=== PATIENT | male | born 1955 | race Caucasian/White ===

== ENCOUNTER 2017-06-07 17:12 | Inpatient (IN) ==
[2017-06-07] MEDS ORDERED: ASPIRIN PO STA (17:31)
[2017-06-07 17:59] LABS: MANUAL DIFF NEEDED? NO
[2017-06-07 18:03] LABS: BASO% 0.6 % (0.0-0.8); EOS% 3.2 % (0.0-10.0); HEMATOCRIT 42.7 % (42.0-52.0); HEMOGLOBIN 14.4 g/dL (14.0-18.0); IMM GRAN# 0.02 X1000 (0.0-0.04); IMM GRAN% 0.3 % (0.0-0.5); LYMPH# 1.88 X1000 (1.2-3.4); LYMPH% 30.1 % (20.5-51.1); MCH 33.8 PG (27-31); MCHC 33.7 g/dL (33-37); MCV 100.2 FL (81-99); MONO# 0.53 X1000 (0.11-0.59); MONO% 8.5 % (1.7-9.3); MPV 10.5 FL (7.4-10.4); NEUT% 57.3 % (42.2-75.2); PLT 223 X1000 (130-400); RBC 4.26 XMIL (4.7-6.1)
[2017-06-07 18:19] LABS: INR 1.13; PTT 31.8 Seconds (22.0-36.0)
[2017-06-07 18:27] LABS: AGAP 9; ALBUMIN 4.2 g/dL (3.5-5.0); ALKALINE PHOSPHATASE 63 U/L (32-122); BUN 12 mg/dL (8-22); CALCIUM 9.2 mg/dL (8.8-10.2); CHLORIDE 101 mmol/L (98-107); CK PROFILE 66 U/L (24-204); COSMO 275; GOT 15 U/L (10-34); GPT 9 U/L (10-44); MAGNESIUM 2.1 mg/dL (1.5-2.7); POTASSIUM 4.7 mmol/L (3.5-5.1); SODIUM 138 mmol/L (136-145); TCO2 28 mmol/L (25-35); TOTAL BILIRUBIN 0.44 mg/dL (0.20-1.00); TOTAL PROTEIN 6.8 g/dL (6.3-8.3)
--- NOTE | 2017-06-07 18:33 | Diag Imaging Result Doc PS360 ---
EXAM: CHEST-PORTABLE INDICATION: CP TECHNIQUE: One view COMPARISON: 08/30/2016 FINDINGS: The lungs are grossly clear. There is no discrete pleural fluid collection or pneumothorax. The cardiomediastinal silhouette and central vasculature are grossly unremarkable. IMPRESSION: No evidence of acute pathology by plain radiograph. Electronically signed by Vladimir Arauz 06/07/2017 6:31 PM
--- NOTE | 2017-06-07 18:45 | Diag Imaging Result Doc PS360 ---
EXAM: CT HEAD W/O CONTRAST TECHNIQUE: Dose reduction protocol was used. INDICATION: right sided numbness/weakness COMPARISON: None. FINDINGS: There is no definite acute infarct given the limited sensitivity of CT versus MRI. There is no discrete intracranial mass, mass effect, or intracranial hemorrhage. There is opacification of the right frontal sinus. The surrounding soft tissues and bony structures are essentially unremarkable, otherwise. IMPRESSION: 1.No evidence of acute intracranial pathology. 2.Right frontal sinus mucosal disease. Electronically signed by Vladimir Arauz 06/07/2017 6:43 PM
--- NOTE | 2017-06-07 19:10 | PROVIDER DOCUMENTATION ---
This chart was entered by Marta Centeno Scribe, acting as scribe for Adiel Ugalde MD. HPI-Neurological Disorder - General Chief Complaint: Chest Pain Stated Complaint: RT ARM/LEG NUMBNESS/CP Time Seen by Provider: 06/07/17 18:00 Source: patient Allergies/Adverse Reactions: Patient Allergies Allergy/AdvReac Type Severity Reaction Status Date / Time acyclovir [From Zovirax] Allergy RASH Verified 06/07/17 18:34 acyclovir sodium * Allergy RASH Verified 06/07/17 18:34 [From Zovirax] Home Medications: Home Medication List Medication Instructions Recorded Confirmed Last Taken Type Warfarin Sodium [Coumadin] 7.5 mg PO DAILY 02/13/14 06/07/17 08/30/16 07:00 History Alprazolam [Xanax] 0.5 mg PO DAILY 06/07/17 06/07/17 Unknown History - History of Present Illness-Neuro Nature of Presenting Problem: 61 Y/O M presents to ED with Stroke-like Symptoms. Pt states this morning he woke up feeling normal walked to the Kitchen and and felt lightheaded and then had a syncopal episode. Pt states he comes to walks to living room and feels the same symptoms and lets himself to the ground and then had another syncopal episode. Pt states that after this episode he began having right side leg and arm numbness. Began around 10:30am Severity: reports: severe Onset/Duration: reports: this morning Timing: reports: still present Context: reports: other (syncopal) Approximate time patient was last seen normal?: 10:15 Character of Deficits: reports: new weakness, altered sensation New weakness or altered sensation location:: reports: RUE, RLE Cognitive Baseline: alert, oriented x3 Associated Symptoms: reports: numbness in legs/feet, weakness. denies: dizziness, chest pain, fatigue, fever/chills, insomnia, nausea, ringing in ears , seizures, slurred speech, trouble walking Similar Symptoms Previously?: No Recently seen or treated by another doctor?: No Review of Systems - Adult - REVIEW OF SYSTEMS - ADULT Constitutional: denies: chills, fever Eyes: reports: no symptoms reported Ears, Nose, Mouth & Throat: reports: no symptoms reported Cardiovascular: denies: chest pain Respiratory: reports: no symptoms reported Gastrointestinal: reports: no symptoms reported Genitourinary: reports: no symptoms reported Musculoskeletal: reports: no symptoms reported Integumentary: reports: no symptoms reported Neurological: reports: dizziness/vertigo, numbness, syncope. denies: seizure Psychiatric: reports: no symptoms reported Endocrine: reports: no symptoms reported Hematologic/Lymphatic: reports: no symptoms reported Allergic/Immunologic: reports: no symptoms reported All Other Systems: Reviewed and Negative Past History - Adult - PAST MEDICAL HISTORY-ADULT Review of Records: reports: Old Records Reviewed, Nursing Assessment Review, Medications Reviewed, Social history reviewed & non-contributory. Major Childhood Illnesses: reports: denies history Cardiovascular: reports: denies history Respiratory: reports: COPD, other (PE) - PRIOR SURGERIES/PROCEDURES Surgical/Procedure History: reports: orthopedic (extremity) - IMMUNIZATION STATUS Childhood Immunizations: See Nurse Assessment Flu Vaccine: See Nurse Assessment - SOCIAL HISTORY Smoking: cigarettes, greater than 1 pack/day Physical Exam- Neurological - Physical Exam-Neuro General Appearance: alert, mild distress Eye Exam: bilateral eye: normal inspection, PERRL, EOMI HENMT: normal ENT inspection, TMs normal, pharynx normal Head Injury: no evidence of injury Neck: full range of motion, supple Respiratory: lungs clear, normal breath sounds Cardiovascular: regular rate, rhythm, no edema, no gallop, no JVD Abdominal Exam: non tender, soft 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 negative: abnormal eye position, abnormal gag reflex, abnormal pupil position, abnormal speech, facial droop, facial paresthesias, facial weakness Coordination/Gait: ABN nose to finger (R) Motor/Sensory: negative Babinski's sign, pronator drift (R), sensory deficit, weak motor strength RUE, weak motor strength RLE Neurologic: grossly normal, sensory deficit Integumentary: normal turgor Psych/Mental Status: normal mood/affect, normal thought content, normal thought process, oriented x 3 - Glascow Coma Scale Best Eye Response: (4) open spontaneously Best Verbal Response: (5) oriented Best Motor Response: (6) obeys commands Total Glascow Score: 15 Progress - PLAN OF CARE/RESULTS Progress/Plan/Lab Results: Vital Signs - 8 hr 06/07/17 17:26 06/07/17 19:05 Temperature 98.0 F Pulse Rate 87 72 Respiratory Rate 20 18 Blood Pressure 125/85 129/97 O2 Sat by Pulse Oximetry 100 98 Laboratory Results - last 24 hr 06/07/17 06/07/17 06/07/17 17:34 17:34 17:34 WBC 6.24 RBC 4.26 L Hgb 14.4 Hct 42.7 MCV 100.2 H MCH 33.8 H MCHC 33.7 RDW Std Deviation 13.8 Plt Count 223 MPV 10.5 H Immature Gran % (Auto) 0.3 Neut % (Auto) 57.3 Lymph % (Auto) 30.1 Screven % (Auto) 8.5 Eos % (Auto) 3.2 Baso % (Auto) 0.6 Immature Gran # (Auto) 0.02 Neut # (Auto) 3.57 Lymph # (Auto) 1.88 Screven # (Auto) 0.53 Eos # (Auto) 0.20 Baso # (Auto) 0.04 PT INR PTT (Actin FS) D-Dimer 0.32 Sodium 138 Potassium 4.7 Chloride 101 Carbon Dioxide 28 Anion Gap 9 BUN 12 Creatinine 1.0 Estimated GFR/1.73 m2 > 60 BUN/Creatinine Ratio 12 Glucose 91 Calculated Osmolality 275 Calcium 9.2 Magnesium 2.1 Total Bilirubin 0.44 AST 15 ALT 9 L Alkaline Phosphatase 63 Creatine Kinase 66 Troponin T Nsb-T-Pnrafwfkasm Pept Total Protein 6.8 Albumin 4.2 Globulin 2.6 Albumin/Globulin Ratio 1.6 06/07/17 06/07/17 06/07/17 17:34 17:34 17:34 WBC RBC Hgb Hct MCV MCH MCHC RDW Std Deviation Plt Count MPV Immature Gran % (Auto) Neut % (Auto) Lymph % (Auto) Screven % (Auto) Eos % (Auto) Baso % (Auto) Immature Gran # (Auto) Neut # (Auto) Lymph # (Auto) Screven # (Auto) Eos # (Auto) Baso # (Auto) PT 12.0 H INR 1.13 PTT (Actin FS) 31.8 D-Dimer Sodium Potassium Chloride Carbon Dioxide Anion Gap BUN Creatinine Estimated GFR/1.73 m2 BUN/Creatinine Ratio Glucose Calculated Osmolality Calcium Magnesium Total Bilirubin AST ALT Alkaline Phosphatase Creatine Kinase Troponin T < 0.010 Htb-V-Ykmxixbduau Pept 121 Total Protein Albumin Globulin Albumin/Globulin Ratio Orders Category Date Time Status Cardiac Monitoring DIRECTED Care 06/07/17 17:31 Active Saline Loc NOW Care 06/07/17 17:31 Active CHEST-PORTABLE [RAD] Stat Exams 06/07/17 17:[address] HEAD W/O CONTRAST [CT] Stat Exams 06/07/17 18:21 Completed CBC WITH ELECTRONIC DIFF [HEME] Stat Lab 06/07/17 17:34 Completed CK PROFILE [SP CHEM] Stat Lab 06/07/17 17:34 Completed COMPREHENSIVE METABOLIC PANEL [CHEM] Stat Lab 06/07/17 17:34 Completed D-DIMER [CHEM] Stat Lab 06/07/17 17:34 Completed MAGNESIUM [CHEM] Stat Lab 06/07/17 17:34 Completed PRO B-NATRIURETIC PEPTIDE Stat Lab 06/07/17 17:34 Completed PROTIME WITH INR [COAG] Stat Lab 06/07/17 17:34 Completed PTT [COAG] Stat Lab 06/07/17 17:34 Completed TROPONIN T Stat Lab 06/07/17 17:34 Completed Aspirin Med 06/07/17 17:31 Discontinued 325 mg PO STAT STA EKG [EKG] Stat Ther 06/07/17 17:25 Ordered EKG [EKG] Stat Ther 06/07/17 17:31 Ordered Result Diagrams: 06/07/17 17:34 06/07/17 17:34 - EKG 1 Time of EKG reading by physician:: 17:28 EKG Read and Signed by:: Adiel Ugalde EKG Interpretation (*Must complete 3 of following elements*): Normal Rate: 83 Rhythm: NSR Comments: Normal ECG - CT/MRI 1 CT Study: Head Impression: Normal CT Results: NAD Departure - Departure Date of Disposition Decision: 06/07/17 Time of Disposition Decision: 19:09 DIAGNOSIS: CVA (cerebral vascular accident) Qualifiers: CVA mechanism: unspecified Qualified Code(s): I63.9 - Cerebral infarction, unspecified Disposition: ADMITTED INPATIENT 09 Certified Medical Emergency: Emergent Condition: Fair - Critical Care Note This patient required my direct & personal management of CC.: No Attestation - Physician/ BEREKET Attestation Patient care was provided by Advanced Practice Provider:: No The physician spent face to face time with patient:: Yes Advanced Practice Provider documentation review:: Supervising physician onsite and consulted in the evaluation and care of this patient. The physician did have a face to face encounter with the patient. This chart was documented by the indicated scribe, (Marta Centeno Scribe) and accurately reflects the services I performed and decisions made by me, Adiel Ugalde MD, as attested by the provider's signature.
[2017-06-07] MEDS ORDERED: ZOFRAN IV PRN (21:44)
--- NOTE | 2017-06-07 22:42 | HISTORY AND PHYSICAL ---
PRIMARY CARE PHYSICIAN: None. CHIEF COMPLAINT: Right-sided weakness x1 day. HISTORY OF PRESENTING ILLNESS: A 61-year-old male with a history of hepatitis C , chronic neck pain, factor V Leiden deficiency how who had presented to the emergency department with 1-day history of having right-sided weakness. Patient states that there was no speech disturbance, but only mostly that his right upper extremity and lower extremity were weak. He was evaluated in the ER. Stroke workup was started and due to his presenting symptoms, he would need admission for further management. At the time of my examination, he had denied any fevers, chills, nausea, vomiting, diarrhea, chest pain, hemoptysis, melena, or weight changes. Just really complained of right-sided weakness. PAST MEDICAL HISTORY: Chronic neck pain, hepatitis C, factor V Leiden deficiency. PAST SURGICAL HISTORY: Bilateral feet surgery. Left knee surgery. Right hip surgery. Left shoulder surgery. ALLERGIES: Acyclovir. CURRENT MEDICATIONS: As listed in medication reconciliation sheet. SOCIAL HISTORY: 40+ pack years history of smoking. No history of alcohol use. Admits to marijuana use. FAMILY HISTORY: No history of coronary disease. REVIEW OF SYSTEMS: Twelve point review of systems is as listed in HPI. Other systems negative. PHYSICAL EXAMINATION: GENERAL: Cooperative, friendly male. He is resting comfortably now. VITAL SIGNS: Temperature 98.1 degrees, pulse 77, respirations 18, blood pressure 129/97. HEENT: Atraumatic, normocephalic. Extraocular movements intact. PERRLA. NECK: Supple. CHEST: Clear to auscultation. CARDIOVASCULAR: Regular rate and rhythm. ABDOMEN: Soft. Positive bowel sounds. EXTREMITIES: No edema. NEUROLOGIC: He is awake, alert, oriented x3. Strength 4-5 right upper and lower extremities. Speech is intact. : No bladder distention. SKIN: Warm. LABORATORIES AND STUDIES: CT of the head, no evidence of any acute intracranial pathology. Laboratory: WBC 6.24, hemoglobin 14.4, hematocrit 42.7, platelets 223,000. Sodium 138, potassium 4.7, chloride 101, CO2 28, BUN is 12, creatinine is 1, glucose 91. ASSESSMENT: A 61-year-old male with a history of chronic neck pain, hepatitis C , factor V Leiden who had presented to emergency department with complaint of right-sided weakness. He was evaluated in the ER and it was suspected he had a stroke and subsequently he will need hospitalization for further management. 1. Right-sided weakness. Suspected cerebrovascular accident. 2. Factor V Leiden deficiency PLAN: 1. We will admit patient to medical floor with telemetry. 2. We will continue with stroke workup. Schedule patient for MRI of the brain with and without. 3. Check an echocardiogram. 4. We will continue his anticoagulation for now. 5. Neurology will be consulted. 6. We will continue with DVT prophylaxis with SCD also. 7. We will continue to follow and reassess. cc: Isaiah Calixto MD MTDD
[2017-06-07] MEDS ORDERED: TYLENOL PO PRN (22:51)
[2017-06-07 22:59] LABS: INR 1.2; PROTIME 12.7 Seconds (9.2-11.7)
[2017-06-07] MEDS: MORPHINE IV PRN (23:13)
[2017-06-08] MEDS: MORPHINE IV PRN ×4 (04:05→21:55)
--- NOTE | 2017-06-08 05:36 | EKG Report ---
Test Performed on : 06/07/2017 5:28:11 PM Test Reason : CP Blood Pressure : / mmHG Vent. Rate : 083 BPM Atrial Rate : 083 BPM P-R Int : 140 ms QRS Dur : 070 ms QT Int : 380 ms P-R-T Axes : 054 028 037 degrees QTc Int : 446 ms Normal sinus rhythm. Normal ECG When compared with ECG of 30-AUG-2016 13:31, No significant change was found Unconfirmed Result
[2017-06-08 06:47] LABS: MANUAL DIFF NEEDED? NO
[2017-06-08 06:58] LABS: BASO% 0.5 % (0.0-0.8); EOS# 0.17 X1000 (0.0-0.7); EOS% 2.7 % (0.0-10.0); HEMATOCRIT 42.4 % (42.0-52.0); HEMOGLOBIN 14.2 g/dL (14.0-18.0); LYMPH# 1.63 X1000 (1.2-3.4); LYMPH% 25.5 % (20.5-51.1); MCH 34.1 PG (27-31); MCHC 33.5 g/dL (33-37); MCV 101.9 FL (81-99); MONO# 0.59 X1000 (0.11-0.59); MONO% 9.2 % (1.7-9.3); MPV 10.6 FL (7.4-10.4); NEUT% 62.1 % (42.2-75.2); PLT 178 X1000 (130-400); RBC 4.16 XMIL (4.7-6.1)
[2017-06-08 07:26] LABS: AGAP 12; ALBUMIN 3.6 g/dL (3.5-5.0); ALKALINE PHOSPHATASE 58 U/L (32-122); BUN 14 mg/dL (8-22); CALCIUM 8.8 mg/dL (8.8-10.2); CHLORIDE 103 mmol/L (98-107); COSMO 277; GOT 14 U/L (10-34); GPT 9 U/L (10-44); POTASSIUM 4.6 mmol/L (3.5-5.1); SODIUM 139 mmol/L (136-145); TCO2 24 mmol/L (25-35); TOTAL BILIRUBIN 0.36 mg/dL (0.20-1.00); TOTAL PROTEIN 6.2 g/dL (6.3-8.3)
--- NOTE | 2017-06-08 09:42 | Diag Imaging Result Doc PS360 ---
MRI BRAIN W W/O CONTRAST - 06/07/2017 INDICATION: cva COMPARISON: Head CT 06/07/2017 FINDINGS: There is no area of restricted diffusion. The ventricles and sulci are normal in size and contour. No intracranial mass or hemorrhage. No abnormal contrast enhancement. There are a few minimal tiny scattered areas of cerebral white matter hyperintensity mostly in the subcortical areas. There is also right frontal sinusitis. IMPRESSION: 1. No acute intracranial abnormality. 2. Right frontal sinusitis. Electronically signed by Shine Begum 06/08/2017 9:39 AM
[2017-06-08] MEDS: XANAX PO SCH (09:46)
[2017-06-08] MEDS: COUMADIN PO SCH (09:46)
--- NOTE | 2017-06-08 13:14 | PROGRESS NOTE ---
DATE: 06/08/2017 Today Mr. Ortiz referred to be doing relatively fine. Still has a little numbness in the right leg and right hand. According to Mr. Ortiz he just blacked out yesterday about 2 times at home where during the episode he did not remember anything but then recovered consciousness spontaneously. He came in and patient was admitted for concern of possible stroke. Very interestingly in his history he states he normally checks his blood pressure on a daily basis and it is usually in the mid 120s over mid 70s to lower 80s. However when the episode happened yesterday his blood pressure was in the 110s and his pulse was in the 60s. Numbers that were extremely rare for him because his pulse normally runs above 100 all the time. OBJECTIVE: Vital signs: Blood pressure is 129/97, pulse of 77, respirations 18 , temperature is 98.1 degrees. General: Mr. Ortiz 61-year-old male. He is in bed, not in any distress. HEENT: Mucosa is pink and moist. Anicteric. Acyanotic. Neck: Supple. Chest : Good air entry bilaterally. No crepitations. No rhonchi. Cardiovascular: Regular rate and rhythm. Did not hear any murmurs. Abdomen: Soft, nontender. Extremities: No pedal edema. 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 Did not appreciate any weakness or any deficits. LABORATORY DATA: Has been reviewed. CBC is unremarkable except for a macrocytosis. Chemistry is also reviewed which is unremarkable. Troponins have been trended 3 times and they are all negative. The patient's lipid panel is also unremarkable. An MRI of the brain was done early this morning which is unremarkable. There is no acute intracranial abnormality. ASSESSMENT: 1. Syncope with extremely low blood pressure and low pulse (both vasodepressor and cardioinhibitory). I think this is mainly neurally mediated however we cannot rule out possibility of an underlying cardiac. We would therefore consult Cardiology to evaluate the patient to see if patient will benefit from any event recorder or some form of cardiac monitoring on outpatient basis. 2. History of factor V deficiency. Patient is on chronic Coumadin therapy. 3. Macrocytosis. We will do B12 and folate levels. 4. Chronic anticoagulation with Coumadin. Currently INR is 1.27. We will continue with his Coumadin therapy. 5. Questionable TIA. MRI negative So, in general, I think Mr. Ortiz suffered from syncope. So far, the MRI report is unremarkable which was done because they were trying to rule out stroke. Will be waiting on the echo which has been done and also the carotid ultrasound is pending. I will order a Cardiology consult for evaluation for possible cardiac monitoring device. cc: Kp Pope MD MTDD
--- NOTE | 2017-06-08 14:22 | CONSULTATION ---
DATE OF CONSULTATION: 06/08/2017 Mr. Ortiz reports having a collapse at home and then noticing right-sided weakness. His history to me now is that he was seated and felt very thirsty. He got up and walked to the kitchen to get some water. He felt "funny feeling" in the head and then he dropped to the floor. He believes that he was unconscious for a few minutes. He was able to pull himself up onto a chair, got some water to drink, walked back toward the other room, and then had similar feeling in the head and this time he eased himself to the floor. He believes that he was unconscious again for several minutes. He recovered. He remembers telephone ringing and he spoke with his on the phone. He remembers feeling weak all over, but more weak on the right side. His vision was difficult globally but he did not notice blindness, diplopia, focal loss of visual field. He believes he is not quite completely recovered today. There was no evidence of serious injury. There was no incontinence. There was not definite tongue biting or bleeding. He reports no previous similar symptoms, no previous collapse, no previous diagnosed seizure, stroke, or other neurologic event. PAST HISTORY: His past history is remarkable for hepatitis C, chronic neck pain , factor V Leiden deficiency. SOCIAL HISTORY: He smokes cigarettes. WORKUP: Work-up here includes noncontrast CT of the head, reported unremarkable. We do not have urine drug screen. HOME MEDICINES: 1. Alprazolam. 2. Report from his primary clinic several months ago includes medicine list then with oxycodone and tramadol. PHYSICAL EXAMINATION: Vital Signs: Systolic blood pressures have ranged 110s to 130s. General Appearance: Now, Mr. Ortiz is awake, alert, attentive. He seems appropriate. Speech is not dysarthric. Language function is intact on bedside testing. Memory seems good. Head and neck: Unremarkable. Neurological Examination: Visual dominguez are full, tested by confrontational finger counting. Extraocular movements are full. Facial motility appears normal and symmetric. Gag is intact. Tongue is midline. He can hear. Shoulder shrug is good bilaterally. Strength is normal in the left limbs. 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 On repeated testing, I was not able to determine definite motor deficit in the right limbs. Tone is equal in the limbs. He did well on [id number] testing bilaterally. His responses to sensory testing by light touch and pinprick are too variable to be considered valid. Proprioception is good at the great toe bilaterally. Gait tested very briefly is unremarkable. He did well on qpdqor-sq-fovi testing. Reflexes are 2+ at knees and trace at the ankles with poor relaxation, but all symmetric. IMPRESSION: 1. Recent collapse, uncertain explanation. There might be some postural lightheadedness or postural hypotension. The history does not sound like a definite seizure. His history to me suggests that he had almost immediate recovery of memory as he regained consciousness after each episode. Seizure is not impossible and, if he did have seizure, I wonder about benzodiazepine withdrawal. His history does not sound like he was having symptoms of benzodiazepine withdrawal prior to these episodes of collapse, however. I do not see anything in the metabolic profile that likely would be associated with seizure or encephalopathy. I encouraged him to stay well hydrated, to stand slowly, to sit quickly if he is lightheaded or funny headed feeling. I do not have any other suggestion from neurologic standpoint. 2. I believe that he has had a good bit of trouble with headache. He reports headache was present when this episode occurred and he still has some headache today, but I think that is baseline. Negative imaging is reassuring. Reason for headache is uncertain. I believe that he already had planned to have the headache evaluation as an outpatient and that can be done electively. Thanks for asking me to see Mr. Ortiz. cc: MD AMADOR Dickens III
--- NOTE | 2017-06-08 16:49 | ECHO REPORT ---
ORDER DATE: 06/08/2017 INTERPRETING PHYSICIAN: Dr. Dalton Dan ECHOCARDIOGRAPHIC MEASUREMENTS: Interventricular septum: 0.7 cm. Left ventricular posterior wall: 0.8 cm. Diastolic diameter: 5.4 cm. Left atrium: 3 cm. Aortic root: 3.8 cm. SUMMARY OF THE 2-DIMENSIONAL IMAGIN. Normal left ventricular cavity size. Estimated ejection fraction of 60%. 2. Definity was used to assess left ventricular systolic function accurately. Aortic valve leaflets are trileaflet. Mitral valve was normal. Tricuspid valve was normal. 3. Peak velocity across the aortic valve less than 2 m/sec. There is mild mitral regurgitation. There is mild tricuspid regurgitation. Peak velocity across the tricuspid valve was 2.3 m/sec. There is trace pulmonary regurgitation. 4. There is no pericardial effusion or obvious intracardiac mass or thrombus seen. cc: Dalton Dan MD
--- NOTE | 2017-06-08 18:38 | CONSULTATION ---
DATE OF CONSULTATION: 06/08/2017 CONSULTATION REQUESTED BY: Hospitalist Service. REASON FOR CONSULTATION: Syncope, weakness. HISTORY: Mr. Ortiz is a 61-year-old male who presented to the hospital for evaluation on June 07 at about 5 p.m. after suffering 2 consecutive episodes of loss of consciousness at home. The patient said that for the past 3 months or 4 he has been very stable. He has not had any major change in his general condition. He was sitting on a reclining chair. He got up, walked into the kitchen, and then he felt what he describes as a "funny" sensation in the head globally. Then he just found himself lying on the floor. He got up. At that time he noticed some mild numbness in the right hand. He went back to where he was sitting and then he collapsed again a second time. He was out no more than 5 minutes and, when he woke up the second time, he had definite numbness in the right arm and right leg. That was a new finding and to this moment he still has that sensation. He says that it is numb to this moment. He does not have any chest pain, shortness of breath, palpitations, or swelling of the legs. In the ER, they did an EKG that looks basically normal. They have done CT scans and MRI of the brain that show no acute intracranial abnormality. His blood work has shown a normal white count, normal hemoglobin. His MCV of note is elevated at 100. His AST and ALT are low. Troponin levels have been checked a total of 3 times. There is no significant abnormality there. His vitamin B12 level interestingly is in the low range of normal to 84. TSH is normal. HDL 51, LDL 89, total cholesterol 147, triglycerides 80. ProBNP was normal at 121. BUN and creatinine were normal. A chest x-ray was done in the ER and it shows no acute pathology. The patient basically is not having any more distress. He is just sitting in bed comfortably. PAST MEDICAL HISTORY: His past history is positive for previous pulmonary embolism. He was found to have Factor V Leiden deficiency for which he has been on Coumadin for several years. Dr. Pham has monitored him for a long time. He also had a reported history of hepatitis C that was treated with interferon at some point and he got over that. I was involved in his care about 7 years ago in 2009. At that time I performed a heart catheterization because he was having chest pain. We found a mild plaque, no more than 20-25%, in the right coronary artery. He has not experienced any further chest complaints since then. PAST SURGICAL HISTORY: He has had bilateral foot surgery, knee surgery. He has a diagnosis of spinal stenosis. He has had right hip replacement, left shoulder surgery. He has had some venous vascular ablation in the past. SOCIAL HISTORY: He is , lives at home. He is a tobacco user, 40-pack/year history. He does not drink alcohol. He smokes marijuana. FAMILY HISTORY: Noncontributory. ALLERGIES: Acyclovir. HOME MEDICATIONS: 1. Warfarin. 2. Xanax. REVIEW OF SYSTEMS: He has chronic unsteadiness on his feet. He has some chronic generalized weakness and tremor. That has to do with his multiple orthopedic issues, low back pain, neck pain. No other recent issues. He was following with Dr. Lawrence, however, he is going to make arrangements to follow up with another physician. PHYSICAL EXAMINATION: Vital signs: Blood pressure 117/87, pulse 68, temperature 97.4, respirations 18. General: Awake, alert, oriented, in no distress. HEENT: Unremarkable. Chest: Clear to auscultation and percussion. Cardiac: Heart sounds regular and rhythmic. I do not hear a gallop or murmur. Gastrointestinal: His abdomen is soft and nontender. No masses. No hepatomegaly. Extremities: Show good pulses. No peripheral edema. Neurologic: He has tremor, unsteadiness. There is suspicion of Romberg sign. When he stands on his feet, he goes backwards. His strength is equal in all extremities. He does have some hyperesthesia on the right lower extremity and right upper extremity. He also has loss of fine motor skills in the hands. His remaining physical exam is unremarkable. Cranial nerves are normal. IMPRESSION: 1. The patient has suffered a syncopal episode. I suspect this is vasodepression. The persistent numbness on the right side of his body is worrisome for the possibility of some long-lasting transient ischemic event or nonreversible ischemic cerebral event. 2. History of previous pulmonary embolism, Factor V Leiden deficiency, with subtherapeutic anticoagulation. 3. History of spinal stenosis and chronic pain syndrome including multiple joints. 4. History of very minimal coronary artery disease. RECOMMENDATIONS: At this point I would suggest to do carotid ultrasound. We will look at his echocardiogram. Consideration may be given at doing an electroencephalogram. We might even consider doing a CT angio of the carotid vessels if his carotid ultrasound is abnormal. Cardiac haile, I do not anticipate any further testing. His EKG is stone cold normal and I do not believe this syncope has anything to do with a change in cardiac rhythm. Thank you again for the opportunity to participate in his evaluation. cc: Ozzy Church MD
[2017-06-09] MEDS: MORPHINE IV PRN ×4 (05:47→21:49)
[2017-06-09 06:53] LABS: AGAP 11; ALBUMIN 4.1 g/dL (3.5-5.0); ALKALINE PHOSPHATASE 66 U/L (32-122); BUN 14 mg/dL (8-22); CALCIUM 9.3 mg/dL (8.8-10.2); CHLORIDE 101 mmol/L (98-107); COSMO 281; GOT 15 U/L (10-34); GPT 11 U/L (10-44); POTASSIUM 4.5 mmol/L (3.5-5.1); SODIUM 141 mmol/L (136-145); TCO2 29 mmol/L (25-35); TOTAL BILIRUBIN 0.37 mg/dL (0.20-1.00)
[2017-06-09] MEDS: COUMADIN PO SCH (09:49)
[2017-06-09] MEDS: XANAX PO SCH (09:49)
[2017-06-09 12:13] LABS: INR 1.46; PROTIME 15.7 Seconds (9.2-11.7)
--- NOTE | 2017-06-09 15:01 | PROGRESS NOTE ---
DATE: 06/09/2017 SUBJECTIVE: This patient states that he is still having some numbness sensation on the right side, upper and lower extremity, also he is complaining of weakness about 4/5 at the level of the upper and lower extremity as well. He looks today very anxious and he told me that he has been through a lot of problems lately. Cardiology Department and Neurology Department are following this patient. This patient states that he has been taking his medication at home as prescribed and sometimes he has been having tachycardia. His TSH is normal. OBJECTIVE: Vital Signs: Temperature 97.9 degrees, pulse 110, respiratory rate 22, blood pressure 119/78, oxygen saturation 99 on room air. HEENT: Head normocephalic. No trauma. PERRLA. Neck: Supple. No JVD. No masses. Central trachea. Chest: Clear to auscultation. No wheezing. No rales. Abdomen: Soft, nontender, nondistended. No hepatosplenomegaly. Cardiovascular: RRR. Tachycardiac. Extremities: No edema. No clubbing. No cyanosis. Neurological: The patient is alert and oriented x3. He has right side weakness, 4/5 upper and lower extremity and numbness sensation. LABORATORY: PT 15.7, INR 1.46. Sodium 141, potassium 4.5, chloride 101, bicarbonate 29, BUN 14, creatinine 1, glucose 90, calcium 9.3, albumin 4.1. ASSESSMENT AND PLAN: 1. Syncope. He has been having some low blood pressure. I told the patient that probably this is related to an orthostatic hypotension. I instructed the patient to get up from bed or chair slowly. Cardiology Department evaluated this patient as well as Neurology Department. We will continue following their recommendations. Pending carotid ultrasound report. 2. History of factor V deficiency. The patient is on chronic Coumadin therapy. He is subtherapeutic at this moment and he has been taking 7.5 daily but I will increase it today to 10 and then I will put this patient back on 7.5. 3. Microcytosis. B12 and folate are within normal limits but borderline low so I will start this patient on B12 and folic acid. 4. Chronic anticoagulation with Coumadin. Like mentioned before, he is supratherapeutic. INR is 1.4. I will increase the dose of his warfarin to 10 today and I will continue with 7.5 tomorrow. 5. Right-sided weakness, with a negative MRI. He has 4/5 right-sided weakness. We do not see any evidence of stroke on his MRI. Neurology Department is following this patient closely. We will continue following their recommendations. 6. Anxiety. This patient told me that he has been through a lot of problems lately, and he believes that this is part of the problem. I have been counseling him about relaxation. I do not want to put this patient on anxiety medication at this moment. cc: Zak Fernandez MD
--- NOTE | 2017-06-09 16:15 | PROGRESS NOTE ---
DATE: 06/09/2017 SUBJECTIVE: Mr. Ortiz reports good recovery of power in the right limbs but still subjective sense of numbness on the right. He does not have any definite new complaint today. OBJECTIVE: He is awake and alert. Speech is not dysarthric. Language function is intact. He has good power on brief beside testing in the limbs symmetrically. He did well on [id number] testing bilaterally. He reports good proprioception at the right great toe MTP joint. He reports subjective diminished pinprick appreciation over the right limbs. This includes this scalp. I did not test his gait. DIAGNOSTIC DATA: Workup includes brain CT and MRI which have not shown definite focal finding but have shown typical chronic micro ischemic change bilaterally. EEG showed no evidence of seizure. He has had cardiac workup. IMPRESSION: Subjective right-sided numbness. This continues to be worrisome for a dominant left hemisphere syndrome, but there is not definite reproducible objective neurologic deficit. I would continue current management with current medicines. I do not know of any other workup to recommend today. I am optimistic that whatever problem is present, he will continue to improve. Thanks for asking me to see Mr. Ortiz. cc: Alice Pop III, MD
[2017-06-09] MEDS ORDERED: COUMADIN PO ONE (21:00)
--- NOTE | 2017-06-09 22:39 | Carotid Study ---
DATE: 06/08/2017 PROCEDURE: Carotid duplex imaging. REFERRING PHYSICIAN: Dr. Pope INTERPRETING PHYSICIAN: Dr. Monroe TECH: Braden INDICATIONS: Right-sided weakness. OBSERVED DATA RIGHT LEFT Brachial Blood Pressure Carotid Pulse Bruits: Carotid/Sub DIAGRAM OF ULTRASOUND IMAGING R L RIGHT INT EXT INT EXT LEFT Dinh (cm/s) Dinh (cm/s) Subclavian 78/7 Subclavian 86/0 CCA Proximal 80/17 CCA Proximal 77/10 CCA Distal 79/15 CCA Distal 93/15 Bulb 64/17 Bulb 71/17 ICA Proximal 62/17 ICA Proximal 53/14 ICA Mid 56/15 ICA Mid 58/17 ICA Distal 59/19 ICA Distal 84/18 ECA 77/13 ECA 62/65 Vertebral 68/8 Vertebral 55/11 ICA/CCA Ratio 0.77 ICA/CCA Ratio 0.90 % Stenosis 0-39% % Stenosis 0-39% FINDINGS: There is soft plaque at the takeoff of the internal carotid arteries bilaterally. There is antegrade vertebral bilaterally. PHYSICIAN INTERPRETATION: Mild plaque disease as described above which is not hemodynamically significant. cc: MD Althea Duarte PA
[2017-06-10] MEDS: MORPHINE IV PRN ×2 (04:41→09:30)
[2017-06-10 06:43] LABS: MANUAL DIFF NEEDED? NO
[2017-06-10 06:48] LABS: BASO% 0.4 % (0.0-0.8); EOS# 0.21 X1000 (0.0-0.7); EOS% 3.1 % (0.0-10.0); HEMATOCRIT 45.1 % (42.0-52.0); HEMOGLOBIN 15.5 g/dL (14.0-18.0); LYMPH# 1.72 X1000 (1.2-3.4); LYMPH% 25.7 % (20.5-51.1); MCH 33.6 PG (27-31); MCHC 34.4 g/dL (33-37); MCV 97.8 FL (81-99); MONO# 0.58 X1000 (0.11-0.59); MONO% 8.7 % (1.7-9.3); MPV 10.2 FL (7.4-10.4); NEUT% 62.1 % (42.2-75.2); PLT 216 X1000 (130-400); RBC 4.61 XMIL (4.7-6.1)
[2017-06-10 06:52] LABS: INR 1.48; PROTIME 15.9 Seconds (9.2-11.7)
[2017-06-10 07:06] LABS: AGAP 12; ALBUMIN 3.9 g/dL (3.5-5.0); ALKALINE PHOSPHATASE 63 U/L (32-122); BUN 17 mg/dL (8-22); CALCIUM 9.2 mg/dL (8.8-10.2); CHLORIDE 103 mmol/L (98-107); COSMO 284; GOT 14 U/L (10-34); GPT 11 U/L (10-44); POTASSIUM 4.2 mmol/L (3.5-5.1); SODIUM 142 mmol/L (136-145); TCO2 27 mmol/L (25-35); TOTAL BILIRUBIN 0.39 mg/dL (0.20-1.00); TOTAL PROTEIN 6.6 g/dL (6.3-8.3)
[2017-06-10 07:49] VITALS: BP 105/67
[2017-06-10] MEDS ORDERED: VITAMIN B-12 SL SCH (09:00)
[2017-06-10] MEDS ORDERED: FOLIC ACID PO SCH (09:00)
[2017-06-10] MEDS: XANAX PO SCH (09:28)
[2017-06-10] MEDS: COUMADIN PO SCH (09:29)
[2017-06-10] MEDS ORDERED: COUMADIN PO ONE (09:41)
[2017-06-10] MEDS ORDERED: COUMADIN PO SCH (10:28)
[2017-06-10] MEDS ORDERED: NORCO-5 PO PRN (12:25)
--- NOTE | 2017-06-10 19:44 | DISCHARGE SUMMARY ---
ADMISSION DATE: 06/07/2017 DISCHARGE DATE: 06/10/2017 DISCHARGE DIAGNOSES: 1. Syncope. 2. Transient ischemic attack versus dominant left hemisphere syndrome with subjective right-sided numbness. 3. History of Factor V deficiency on chronic anticoagulation with Coumadin. 4. Folate deficiency. 5. Anxiety. CONSULTS: 1. Neurology Department, Dr. Pop. 2. Cardiology Department, Dr. Church. HOSPITAL COURSE: A 61-year-old male with a past medical history of hepatitis C, Factor V Leiden deficiency, anxiety, presented to the emergency department with a one day history of having right-sided weakness without speech disturbance but mostly that his right upper extremity and lower extremity were weak. We did a CT scan and also an MRI that did not show any lesion. Apparently he also the day before admission blacked out, he has been feeling some kind of dizziness when he goes from the seated position to stand up. Dr. Pop evaluated this patient. This patient had some mild right-sided weakness but also had subjective numbness. He has been getting better. We do believe this patient is going to recover completely hopefully. His INR has been subtherapeutic. He was to take 7.5 mg of warfarin daily. This has been increased to 10. He has been improving on a daily basis. This is why we decided to discharge this patient with followup by his primary care doctor and Dr. Pham as an outpatient. At the moment of discharge, this patient was in stable medical condition, ambulating and tolerating p.o. PHYSICAL EXAMINATION: Vital signs: Temperature 98, pulse 97, respiratory rate 22, blood pressure 105/67, oxygen saturation 94 on room air. HEENT: Normocephalic, atraumatic. ZAK. Neck: Supple. No JVD. No masses. Central trachea. Chest: Clear to auscultation. No wheezing. No rales. Abdomen: Soft, nontender, nondistended. No hepatosplenomegaly. Cardiovascular: RRR. Neurologic: The patient is alert and oriented x3. No facial asymmetry. He has mild right-sided weakness with some numbness. He follows commands. He is able to walk and move all four extremities. LABORATORY DATA: WBC 6.7, hemoglobin 15.5, hematocrit 45.1, platelets 216. PT 15.9, INR 1.48. Sodium 142, potassium 4.2, chloride 103, bicarbonate 27, BUN 17, creatinine 1, glucose 94, calcium 9.2. DISCHARGE MEDICATIONS: 1. Xanax 0.5 mg p.o. twice a day. 2. Folic acid 1 mg p.o. daily. 3. Warfarin 10 mg p.o. daily. FOLLOWUP: Followup by his primary care doctor and followup by Dr. Pham next week to follow up with his INR. RECOMMENDATIONS: I recommend to this patient to be hydrated and take his medications as prescribed. This patient has anxiety and I increased the dose of his Xanax from once a day to twice a day. TIME FOR DISCHARGE OF PATIENT: Around 38 minutes. cc: Zak Fernandez MD
--- NOTE | 2017-06-13 17:09 | EEG REPORT ---
DATE: 06/08/2017 REFERRING PHYSICIAN: Dr. Church EEG: #[id number] FLUX TUBE ATTENDANT: Roula Gilbert. BACKGROUND INFORMATION/TECHNIQUE: A digitally-recorded EEG is obtained with 1 additional channel for EKG. HISTORY OF PRESENT ILLNESS: A 61-year-old male with episodic loss of consciousness and right- sided weakness. An EEG is ordered to detect evidence of possible seizures. MEDICATIONS: Include alprazolam. EEG FINDINGS: A poorly-formed 8.5 to 9 Hz posterior-dominant alpha rhythm is noted in the occipital regions. At maximal alertness, the anterior background consists of mixed alpha and beta range frequencies. No focal slowing. No epileptiform discharges and no seizures. Hyperventilation induced mild diffuse physiologic slowing. Photic stimulation induced a normal photic driving response. The patient becomes drowsy and stage II sleep is achieved with qualitatively normal sleep architecture. The EKG demonstrates regular RR intervals. IMPRESSION AND CLINICAL CORRELATION: Normal routine EEG in the awake, drowsy and sleep states. Of note, a normal EEG does not rule out epilepsy. Clinical correlation is advised. cc: MD Ozzy Ledbetter MD [facility]
== END 2017-06-10 13:40 | disposition home or self-care (01) ==
LOC: ED 17:12 → SUATTDRO 20:57 → 3N 20:57
PROVIDERS: ATTEND Internal Medicine